=== PATIENT | female | born 1990 | race Caucasian/White ===

== ENCOUNTER 2018-08-28 21:48 | Inpatient (IN) | payer OTHER ==
[2018-08-28] MEDS ORDERED: Buffered Lidocaine 1% SYRIN* 1 ML/SYRINGE INTRADERM ONE (22:23)
[2018-08-28] MEDS ORDERED: Lactated Ringers 1000 ML Bag* 1,000 ML IV ONE (22:23)
--- NOTE | 2018-08-28 22:31 | HP ---
General Information - Reason for Visit labor - General Information Maternal Age: 27 Grav: 2 Para: 1 SAB: 0 IEA: 0 Estimated Due Date: 08/30/18 Determined By: LMP Gestational Age in Weeks/Days: 39 w 5d Maternal Blood Type and Rh: O Positive - Results this Serology/RPR Result: Non-Reactive Rubella Result: Non-Immune HBsAg Result: Negative HIV Result: Negative GBS Culture Result: Negative Past Medical History Delivery History: Hx Uncomplicated Vaginal Delivery Pertinent Past Medical History: Non-Contributory Pertinent Past Surgical History: None Pertinent Family History: See Records - Antepartal Records Antepartal Records: Reviewed, Uncomplicated Review of Systems Constitutional: Uncomfortable CV Complaint: No Respiratory: Shortness of Breath: No Gastrointestinal: No Nausea/Vomiting, Soft Stool Genitourinary: No Leaking Fluid Musculoskeletal: Contractions Neurological: No Headache Movement: Normal Exam Allergies/Adverse Reactions: Allergies No Known Allergies Allergy (Verified 01/22/16 09:41) - Exam Breast: - - soft, no masses Extremities: Edema Heart: Normal Rhythm/Heart Sounds HEENT: No Significant Findings Lungs: Clear Bilaterally Reflexes: DTR 2+ Thyroid: No Thyromegaly - Abdominal Exam Abdomen Exam: Non-Tender - Ultrasound/Biophysical Profile Ultrasound Status: Not Done Targeted Exam Findings Estimated Weight: 8 lbs Cervical Exam: 8cm Effacement: 100% Membrane Status: Bulging Bleeding/Discharge: Bloody Show EFM Findings - External Monitor Findings Baseline Heart Rate: 120 External Monitor Findings: Accelerations Present, No Pattern of Variable or Late Decelerations, Variability Moderate, Baseline Stable External Monitor Findings Comment: category 1 Contractions: Regular, Strong, 45-90 Seconds Contraction Frequency: q 2-3 Assessment/Plan - Assessment active labor - Obstetrical Risk Factors Risk Factors Comment: AROM at 2315--clear, bloody fluid - Plan Plan: Admit - Anticipate Vaginal Delivery - Date/Time of Admission Date of Admission: 08/28/18 Time of Admission: 22:30
[2018-08-28 22:38] LABS: ABS Basophils 0 10^3/ul (0-0.2); ABS Eosinophils 0.1 10^3/ul (0-0.6); ABS Lymphocytes 3.5 10^3/ul (1.0-4.8); ABS Monocytes 0.9 10^3/ul (0-0.8); ABS Neutrophils 8.2 10^3/ul (1.5-7.7); ABS Nucleated RBC 0 10^3/ul; Eosinophil % 0.8 %; Hematocrit 34 % (33-41); Hemoglobin 11.3 g/dL (12.0-16.0); Lymphocyte % 27.7 %; Mean Corpuscular HGB Conc 34 g/dL (31-36); Mean Corpuscular Hemoglobin 31 pg (27-31); Mean Corpuscular Volume 93 fL (80-97); Mean Platelet Volume 7.3 fL (7.4-10.4); Nucleated Red Blood Cells % 0; Platelet Count 347 10^3/uL (150-450); Red Blood Count 3.61 10^6 /uL (3.70-4.87); Red Cell Distribution Width 15 % (10.5-15); White Blood Count 12.7 10^3/uL (3.5-10.8)
[2018-08-28] MEDS ORDERED: Oxytocin in LR* 20 UNITS/1,000 ML BAG IVPB ONE (22:39)
[2018-08-28] MEDS ORDERED: Lactated Ringers 1000 ML Bag* 1,000 ML IV SCH ×2 (23:00→23:45)
[2018-08-28] MEDS ORDERED: Glycerin ADULT SUPP PR PRN (23:04)
[2018-08-28] MEDS ORDERED: Acetaminophen TAB* 325 MG PO PRN (23:04)
[2018-08-28] MEDS ORDERED: Measles, Mumps,Rubella VACC* 0.5 ML/VIAL SUBCUT ONE (23:04)
[2018-08-28] MEDS ORDERED: Dibucaine 1% 28.35 GM TUBE PR PRN (23:04)
[2018-08-28] MEDS ORDERED: Witch Hazel PAD* JAR TOPICAL PRN (23:04)
--- NOTE | 2018-08-28 23:14 | PROCNOTE ---
[facility] OB: Delivery Note - Delivery A Date of : 08/28/18 Time of : 22:34 [place] Sex: Male Score 1 Minute: 9 Score 5 Minutes: 9 Gestational Age in Weeks and Days at Delivery: 39 Weeks and 5 Days Delivery Method: Spontaneous Vaginal Labor: Spontaneous Did Patient attempt ?: N/A, No Previous Amniotic Fluid: Bloody Estimated Blood Loss: 200 Anesthesia/Analgesia: Nitrous-Labor Delivered By: Sayra Lopez - Nursery Level of Nursery: Regular/Bedside - Perineum Perineal Injury: Perineal Laceration, 1st Degree Perineal Injury Comment: repaired with 3-0 ccg under 1% lidocaine local Perineal Repair: By Delivering Practioner - Events Delivery Events of Note: Precipitous Delivery - Additional Delivery Notes Additional Delivery Notes: arrived to unit 2155, was 6 cm by RN exam, very uncomfortable, requesting Nitrous oxide. AROM at 2215, 8cm. Requested epidural, IV started. Became very uncomfortable, head on perineum, pushed 1 min. Infant pink with stimulation. Placenta Noel. Fundus firm with massage. IV with pitocin running. EBL 200cc
[2018-08-28] MEDS ORDERED: Oxytocin in LR* 20 UNITS/1,000 ML BAG IVPB SCH (23:45)
[2018-08-29] MEDS: Ibuprofen TAB* 600 MG PO PRN ×3 (00:06→20:22)
[2018-08-29] MEDS ORDERED: Lidocaine 1% INJ* 10 MG/ML 30 ML SDV ONE (01:08)
[2018-08-29 07:29] LABS: Hematocrit 28 % (33-41); Hemoglobin 9.3 g/dL (12.0-16.0); Mean Corpuscular HGB Conc 33 g/dL (31-36); Mean Corpuscular Hemoglobin 30 pg (27-31); Mean Corpuscular Volume 93 fL (80-97); Mean Platelet Volume 7.5 fL (7.4-10.4); Platelet Count 276 10^3/uL (150-450); Red Blood Count 3.05 10^6 /uL (3.70-4.87); Red Cell Distribution Width 15 % (10.5-15); White Blood Count 14.1 10^3/uL (3.5-10.8)
[2018-08-29] MEDS: Ferrous Gluconate TAB* 324 MG TAB PO SCH ×2 (09:37→21:09)
[2018-08-29] MEDS: Docusate CAP* 100 MG PO SCH ×3 (09:38→21:09)
[2018-08-30 08:33] VITALS: BP 116/63
[2018-08-30] MEDS: Docusate CAP* 100 MG PO SCH (08:35)
[2018-08-30] MEDS: Ferrous Gluconate TAB* 324 MG TAB PO SCH (08:35)
== END 2018-08-30 11:37 | disposition home or self-care (01) | DRG 560 ==
LOC: MCHOBOUT 21:48 → MCHOB 22:08
PROVIDERS: ADMIT Midwife; ATTEND Midwife
PROC: 10E0XZZ Delivery of Products of Conception, External Approach (ICD-10-PCS; principal; 2018-08-28)
PROC: 10907ZC Drainage of Amniotic Fluid, Therapeutic from Products of Conception, Via Natural or Artificial Opening (ICD-10-PCS; 2018-08-28)
PROC: 4A1HXCZ Monitoring of Products of Conception, Cardiac Rate, External Approach (ICD-10-PCS; 2018-08-28)
PROC: 0HQ9XZZ Repair Perineum Skin, External Approach (ICD-10-PCS; 2018-08-28)
DX: O62.3 Precipitate labor (principal); Z37.0 Single live birth; O70.0 First degree perineal laceration during delivery; Z3A.39 39 weeks gestation of pregnancy
CPT/HCPCS: 36415; 85025; 85027; 86850; 86900; 86901; 90707; A9270-GY

== ENCOUNTER 2020-11-25 23:12 | Inpatient (IN) ==
[2020-11-25] MEDS ORDERED: Lactated Ringers 1000 ml BAG 1,000 ML IV ONE (23:29)
[2020-11-25] MEDS ORDERED: Buffered Lidocaine 1% SYRIN 1 ml INTRADERM ONE (23:29)
[2020-11-25] MEDS ORDERED: Lactated Ringers 1000 ml BAG 1,000 ML IV SCH (23:45)
[2020-11-25] MEDS ORDERED: OBEPIDURAL 250 ML EPIDURAL ONE (23:57)
[2020-11-26 00:04] LABS: ABS Basophils 0.1 10^3/ul (0-0.2); ABS Eosinophils 0.1 10^3/ul (0-0.6); ABS Lymphocytes 2.9 10^3/ul (1.0-4.8); ABS Monocytes 0.8 10^3/ul (0-0.8); ABS Neutrophils 7.8 10^3/ul (1.5-7.7); Eosinophil % 0.6 %; Hematocrit 31 % (35-47); Hemoglobin 10.2 g/dL (12.0-16.0); Lymphocyte % 24.7 %; Mean Corpuscular HGB Conc 33 g/dL (31-36); Mean Corpuscular Hemoglobin 31 pg (27-31); Mean Corpuscular Volume 92 fL (80-97); Mean Platelet Volume 7.5 fL (7.4-10.4); Platelet Count 376 10^3/uL (150-450); Red Blood Count 3.32 10^6 /uL (3.70-4.87); Red Cell Distribution Width 15 % (10-15); White Blood Count 11.5 10^3/uL (3.5-10.8)
[2020-11-26 00:15] LABS: Urine Benzodiazepine Screen None Detected (None Detect); Urine Cannabinoids Screen None Detected (None Detect); Urine Opiates Screen None Detected (None Detect)
[2020-11-26] MEDS ORDERED: Lactated Ringers 1000 ml BAG 1,000 ML IV ONE (00:44)
[2020-11-26] MEDS ORDERED: Sodium Citrate/Citric Acid LIQ 15 ML UDC PO PRN (00:44)
[2020-11-26] MEDS ORDERED: EPHEDrine (Pressors) 50 MG/ML VIAL IV PUSH PRN (00:44)
[2020-11-26] MEDS ORDERED: Phenylephrine 40 mcg/mL 10mL (400mcg) SYRINGE IV PUSH PRN (00:44)
[2020-11-26] MEDS ORDERED: Lactated Ringers 1000 ml BAG 1,000 ML IV SCH ×2 (01:00→02:00)
[2020-11-26] MEDS ORDERED: OBEPIDURAL 250 ML EPIDURAL SCH (01:00)
[2020-11-26] MEDS ORDERED: Oxytocin in LR 20 UNITS/1,000 ML BAG IVPB ONE (01:28)
[2020-11-26] MEDS ORDERED: Witch Hazel PAD JAR TOPICAL PRN (01:44)
[2020-11-26] MEDS ORDERED: Glycerin ADULT 2.4 gm SUPP PR PRN (01:44)
[2020-11-26] MEDS ORDERED: Dibucaine 1% OINT 28.35 GM TUBE PR PRN (01:44)
[2020-11-26] MEDS ORDERED: Measles, Mumps,Rubella VACC 0.5 ML/VIAL SUBCUT ONE (01:44)
[2020-11-26] MEDS ORDERED: Oxytocin in LR 20 UNITS/1,000 ML BAG IVPB SCH (02:00)
[2020-11-26] MEDS ORDERED: Lidocaine 1% VIAL 10 MG/ML VIAL ONE (04:19)
[2020-11-27 06:24] LABS: ABS Eosinophils 0.2 10^3/ul (0-0.6); ABS Lymphocytes 3.8 10^3/ul (1.0-4.8); ABS Monocytes 0.7 10^3/ul (0-0.8); ABS Neutrophils 4.2 10^3/ul (1.5-7.7); Eosinophil % 1.7 %; Hematocrit 27 % (35-47); Hemoglobin 9.1 g/dL (12.0-16.0); Lymphocyte % 43.4 %; Mean Corpuscular HGB Conc 34 g/dL (31-36); Mean Corpuscular Hemoglobin 32 pg (27-31); Mean Corpuscular Volume 93 fL (80-97); Mean Platelet Volume 7.3 fL (7.4-10.4); Platelet Count 282 10^3/uL (150-450); Red Blood Count 2.89 10^6 /uL (3.70-4.87); Red Cell Distribution Width 14 % (10-15); White Blood Count 8.8 10^3/uL (3.5-10.8)
[2020-11-27 09:33] VITALS: BP 122/72
== END 2020-11-27 12:21 | disposition home or self-care (01) | DRG 560 ==
LOC: MCHOBOUT 23:12 → MCHOB 23:18
PROVIDERS: ADMIT Midwife; ATTEND Midwife